=== PATIENT | female | born 1985 ===

== ENCOUNTER 2023-04-20 17:07 | Emergency (ER) | payer MEDICAID ==
[~2023-04-20] VITALS: Ht 172.7 cm; Wt 91.2 kg
--- NOTE | 2023-04-20 17:21 | NUR ---
MSE COMPLETED BY MARIAELENA JONES
--- NOTE | 2023-04-20 18:50 | NUR ---
I have reviewed the assessments performed by KATIE Kyle in this chart and concur.
[2023-04-20 18:55] VITALS: BP 132/78; PULSE 89; RESP 16; TEMP 98.4; O2SAT 97
== END 2023-04-20 18:57 | disposition home or self-care (01) ==
LOC: ER 17:08 → EDBD 17:08 → ER 18:57
DX: R07.89 Other chest pain (principal); W19.XXXA Unspecified fall, initial encounter; Y93.89 Activity, other specified; Y92.89 Other specified places as the place of occurrence of the external cause; Y99.8 Other external cause status
CPT/HCPCS: 71100; 99283